=== PATIENT | female | born 1950 | race Caucasian/White ===

== ENCOUNTER → 2021-06-08 | Outpatient (CLI) | payer OTHER | END | disposition home or self-care (01) | LOC: TOM 07:46 | PROVIDERS: ATTEND Internal Medicine Gastroenterology | DX: R19.5 Other fecal abnormalities (principal); Z12.11 Encounter for screening for malignant neoplasm of colon ==

== ENCOUNTER 2021-10-07 05:50 | Day surgery (SDC) | payer OTHER | END 2021-10-07 13:50 | disposition home or self-care (01) | LOC: CIR.AMB 05:50 | PROVIDERS: ATTEND Surgery | DX: D37.4 Neoplasm of uncertain behavior of colon (principal); K62.5 Hemorrhage of anus and rectum; E11.9 Type 2 diabetes mellitus without complications; E78.5 Hyperlipidemia, unspecified; I10 Essential (primary) hypertension; E03.9 Hypothyroidism, unspecified; Z79.84 Long term (current) use of oral hypoglycemic drugs ==